=== PATIENT | female | born 1935 ===

== ENCOUNTER 2016-11-23 10:55 | Inpatient (IN) ==
[2016-11-23] MEDS ORDERED: Naloxone 0.4 MG/ML INJ IVP PRN (13:52)
[2016-11-23 14:34] LABS: Basophils % 0.4 %; Eosinophils % 0.4 %; Hematocrit 29.1 % (35.3-44.9); Hemoglobin 9.3 g/dL (11.5-15.4); Immature Granulocytes % 0.5 % (0-4); Lymphocytes # 0.5 K/mcL (0.6-4.6); Lymphocytes % 8.3 %; Mean Corpuscular Hemoglobin 28.4 pg (28.0-33.3); Mean Corpuscular Volume 88.7 fL (83.0-100.0); Mean Platelet Volume 9.6 fL (9.4-12.4); Monocytes # 0.4 K/mcL (0.0-1.3); Monocytes % 6.5 %; Neutrophils # 4.8 K/mcL (1.6-8.9); Platelet Count 246 K/mcL (140-400); Red Blood Count 3.28 M/mcL (3.82-4.97); Red Cell Distribution Width 15.3 % (11.5-14.5); Segmented Neutrophils % 83.9 %
[2016-11-23 14:40] LABS: INR 1.1; Prothrombin Time 12.1 Seconds (9.4-12.1)
--- NOTE | 2016-11-23 14:44 | Pulmonology History & Physical ---
Date of Encounter: 11/23/16 Time of Encounter: 13:30 Assessment and Plan (1) Respiratory failure Current visit: Yes Status: Acute Neuro: Patient arrived sedated. Underwent RSI [facility] ED. Per report patient received vecuronium was moving spontaneously on arrival. Patient showed some degree of JUSTINA transfer paperwork. Suspect the current altered mental status is due to retention of active metabolites of percent due to decreased creatinine clearance. Plan Will have patient wake up and then sedate provide analgesia as appropriate for mechanical ventilation. Cardiovascular: Extensive coronary disease history including CABG in 2010 and moderate aortic stenosis. Last echo edema records from March 2016 shows preserved LV function and only mild diastolic dysfunction. Patient's daughter' s description of symptoms could be indicative of acute worsening of CHF. This is also supported by clinical exam. Given that she is recently admitted and treated for nausea and vomiting, also that she received IV fluids prior to that treatment. Plan now is to obtain serum BNP, repeat transthoracic echo, and cardiac enzymes. Restart Lasix 40 mg IV. If hypertension persists consider initiation of nitroglycerin drip. Pulmonary: Acute respiratory failure at this point appears most likely related to exacerbation of CHF. Chest x-ray is pending. Patient is currently ventilating and oxygenating well without aggressive ventilatory management. Low suspicion for pneumonia or PE. Nephro: Evidence of JUSTINA on laboratory data forwarded from [facility]. No reported history of chronic kidney disease. Suspect this could be prerenal from decreased perfusion owing to congestive state. Plan to reevaluate serum creatinine following initiation of diuresis. Plan avoid other nephrotoxic drugs. GI: Nasogastric tube in place. Hold enteral nutrition for now with plan to initiate if patient remains intubated for more than 4872 hours. ID: Afebrile and other lab work pending. Plan to obtain blood cultures as the nature of her respiratory failure is not entirely clear. No plan to initiate antibiotics at this point most evidence of infection is uncovered. HO: Reported history of anemia of chronic disease. CBC pending. No apparent indication for transfusion. Endocrine: History of type 2 diabetes. Hold all oral antihyperglycemic's. Initiate sliding scale insulin. Musculoskeletal: No evidence of muscular skeletal injury. No skin break on exam. Disposition: Admitted to ICU Qualifiers: Chronicity: acute Respiratory failure complication: unspecified whether with hypoxia or hypercapnia Qualified Code(s): J96.00 - Acute respiratory failure, unspecified whether with hypoxia or hypercapnia (2) Angina at rest Current visit: No Status: Chronic (3) Atrial fibrillation Current visit: No Status: Chronic Qualifiers: Atrial fibrillation type: persistent Qualified Code(s): I48.1 - Persistent atrial fibrillation (4) Diabetes Current visit: Yes Status: Chronic Qualifiers: Diabetes mellitus type: type 2 Diabetes mellitus complication status: without complication Diabetes mellitus ocean transportation intermediary insulin use: without detention use Qualified Code(s): E11.9 - Type 2 diabetes mellitus without complications (5) Anemia Current visit: Yes Status: Chronic Qualifiers: Anemia type: iron deficiency Iron deficiency anemia type: unspecified iron deficiency Qualified Code(s): D50.9 - Iron deficiency anemia, unspecified History of Present Illness Chief complaint: Respiratory failure HPI: 81-year-old female was transferred from [place] ED for respiratory failure. Patient is intubated and sedated at time of interview in history of present illness was obtained through her daughter. Patient's daughter reports the patient was recently admitted to [facility] on November 20 for nausea, vomiting , and diarrhea. Patient was admitted for several days and discharged yesterday. Following discharge, patient began to experience increased shortness of breath and orthopnea. Patient was unable to sleep last night and her symptoms continued to worsen through the day today. The patient was transported to the emergency department by local EMS. On arrival patient was noted to be in respiratory failure and intubated by ED staff via RSI. According to patient's daughter, patient experiences baseline dyspnea at rest and dyspnea on exertion with chest pain and frequent sublingual nitroglycerin use. Patient has significant CAD history which includes 3 vessel bypass in 2010 and echo in March 2016 which reveals moderate aortic stenosis but preserved LV ejection fraction and mild diastolic dysfunction. Daughter reports the patient's baseline dyspnea had improved several months ago when patient was begun on daily Lasix therapy and notes that over the past several weeks to months her peripheral edema seems to have worsened again and her breathing has become more difficult. Aside from recent dyspnea, patient's daughter denies noting fevers, chills, productive cough, hemoptysis. Past Med Surg Social Fam HX - Past Medical History Source: old records reviewed, obtained from family Medical history: atrial fibrillation, coronary artery disease, diabetes, GERD, hyperlipidemia, hypertension, valvular heart disease Psychiatric history: no psych history - Past Surgical History Surgical History: cholecystectomy, coronary bypass (CABG), hysterectomy - Social History Smoking Status: Never smoker Smokeless Tobacco Status: No Alcohol use: none Drug use: none Medications and Allergies Amlodipine Besylate 10 mg PO DAILY 03/03/16 [History] Aspirin [Lo-Dose Aspirin EC] 81 mg PO DAILY 03/03/16 [History] Atorvastatin [Lipitor] 80 mg PO DAILY 03/03/16 [History] Clopidogrel [Plavix] 75 mg PO DAILY 03/03/16 [History] Isosorbide MONOnitrate [Isosorbide Mononitrate ER] 120 mg PO DAILY 03/03/16 [ History] Lisinopril [Zestril] 20 mg PO DAILY 03/03/16 [History] Metoprolol [Lopressor] 50 mg PO BID 03/03/16 [History] Multivit-Min/FA/Lycopen/Lutein [Centrum Silver Tablet] 1 tab PO DAILY 03/03/16 [ History] Nitroglycerin [Nitrostat] 0.4 mg PO Q5M PRN 03/03/16 [History] Pantoprazole Sodium [Protonix] 20 mg PO DAILY 03/03/16 [History] Ranolazine [Ranexa] 1,000 mg PO BID 03/03/16 [History] hydroCHLOROthiazide [Hydrochlorothiazide] 25 mg PO DAILY 03/03/16 [History] metFORMIN [Glucophage] 500 mg PO BIDWM 03/03/16 [History] Potassium Chloride 10 meq PO DAILY #30 tab.er.prt 03/04/16 [Rx] Furosemide 40 mg PO 11/23/16 [History] Allergies No Known Allergies Allergy (Verified 03/03/16 08:23) ROS unobtainable: due to endotracheal tube All Systems: A 10-system review of systems was performed and is negative for pertinent findings except as documented above in the HPI. Physical Examination Vital Signs: Vital Signs, Last 4 Hours Temp Pulse Resp BP Pulse Ox 11/23/16 14:11 16 100 11/23/16 14:02 88 16 173/82 98 11/23/16 13:39 97.6 F 96 15 159/81 99 11/23/16 13:31 90 General appearance: asleep Eyes: nonicteric Neck: supple Effort: other (Mechanically ventilated) Auscultation: bilateral: clear (anterior lung sounds) Cardiovascular: other (regular rhythm and tachycardic) Gastrointestinal: normoactive bowel sounds, soft Extremities: no cyanosis, no clubbing, pink and warm, edema (BL LE edema) Gait: other (could not be assessed) unable to assess due to mental status, other other (could not be assessed) Results - Laboratory Findings Abnormal lab findings: Abnormal lab results POC Glucose 110 (58-89) H 11/23/16 13:28 - Diagnostic Findings Chest x-ray: pending
[2016-11-23 14:49] LABS: ABG Base Excess -4.4 mEq/L (-2.0 to 3.0); ABG Oxygen Saturation 97 % (95-98); ABG PCO2 33 mmHg (35-45); ABG PH 7.39 pH Units (7.32-7.45); ABG PO2 94 mmHg (85-104); Blood Gas FiO2 40 %
[2016-11-23 14:55] LABS: Albumin 3.4 g/dL (3.5-5.0); Albumin/Globulin Ratio 0.9 (1.1-2.2); Bilirubin,Total 0.9 mg/dL (0.2-1.2); Calcium 9.9 mg/dL (8.6-10.8); Globulin 3.7 g/dL (2.4-3.5); Magnesium 1.5 mg/dL (1.6-2.6); Phosphorous 3.3 mg/dL (2.3-4.7); Potassium 3.9 mEq/L (3.5-4.5); Total Protein 7.1 g/dL (6.0-8.3)
[2016-11-23 15:03] LABS: Bilirubin,Urine Negative (Negative); Blood,Urine Negative (Negative); Clarity,Urine Clear (Clear); Color,Urine Yellow (Yellow); Glucose,Urine (UA) Normal (Normal); Ketones,Urine Negative (Negative); Leukocyte Esterase,Urine Negative (Negative); Nitrite,Urine Negative (Negative); Protein,Urine 30 mg/dL (Neg-Trace); Specific Gravity,Urine 1.014 (1.010-1.025); Urobilinogen,Urine Normal (Normal)
[2016-11-23 15:05] LABS: Bacteria,Urine None Seen per hpf (None-Few); Hyaline Casts,Urine None Seen per lpf (None-Few); Squamous Epithelial Cell,Urine Moderate per lpf (None-Few); WBC,Urine 0-3 per hpf (0-3)
[2016-11-23] MEDS ORDERED: *HR* Heparin 5,000 UNIT/ML VIAL IVP PRN ×5 (15:23→15:41)
[2016-11-23] MEDS ORDERED: *HR* Heparin 5,000 UNIT/ML VIAL IVP ONE ×3 (15:23→15:45)
[2016-11-23] MEDS ORDERED: Heparin 25,000 UNIT/500 ML D5W 25,000 UNIT/500 ML MLS IVC SCH (15:30)
[2016-11-23] MEDS ORDERED: *HR* Metoprolol 5 MG/5 ML VIAL IVP ONE ×2 (15:47→19:11)
[2016-11-23] MEDS: Aspirin 81 MG TAB.CHEW PO SCH (15:51)
[2016-11-23] MEDS: Furosemide 40 MG/4 ML VIAL IVP SCH (16:34)
[2016-11-23] MEDS: FentaNYL (PF) 1,000 MCG in 0.9 % Sodium Chloride 80 ML IVC SCH (16:50)
[2016-11-23] MEDS: Heparin 25,000 UNIT/500 ML D5W 25,000 UNIT/500 ML MLS IVC SCH (16:51)
[2016-11-23 17:10] LABS: Activated Partial Thrombo Time 36.3 Seconds (26.0-36.0)
[2016-11-23] MEDS: Metoclopramide 10 MG/10 ML UD.LIQ PO SCH (17:51)
[2016-11-23 23:25] LABS: Activated Partial Thrombo Time 158.2 Seconds (26.0-36.0)
[2016-11-23 23:34] LABS: Heparin anti-factor XA UFH 0.8 IU/mL (0.30-0.70)
[2016-11-24] MEDS: Furosemide 40 MG/4 ML VIAL IVP SCH (03:38)
[2016-11-24] MEDS ORDERED: Nitroglycerin 0.4 MG TAB.SUBL SL PRN (03:44)
[2016-11-24] MEDS: Metoclopramide 10 MG/10 ML UD.LIQ PO SCH ×2 (05:01→17:37)
[2016-11-24] MEDS ORDERED: Ondansetron 4 MG/2 ML VIAL IVP PRN (07:21)
[2016-11-24 07:40] LABS: Calcium 9.2 mg/dL (8.6-10.8); Magnesium 1.4 mg/dL (1.6-2.6)
[2016-11-24 07:41] LABS: Phosphorous 5.3 mg/dL (2.3-4.7)
[2016-11-24 07:50] LABS: Hematocrit 26.6 % (35.3-44.9); Hemoglobin 8.5 g/dL (11.5-15.4); Mean Corpuscular Hemoglobin 28.9 pg (28.0-33.3); Mean Corpuscular Volume 90.5 fL (83.0-100.0); Mean Platelet Volume 10.4 fL (9.4-12.4); Platelet Count 285 K/mcL (140-400); Red Blood Count 2.94 M/mcL (3.82-4.97); Red Cell Distribution Width 15.9 % (11.5-14.5)
[2016-11-24] MEDS ORDERED: D5% in Water 1,000 ML IVC PRN ×2 (07:53→10:40)
[2016-11-24] MEDS ORDERED: Dextrose Gel 15 GM PO PRN ×4 (07:53→10:40)
[2016-11-24] MEDS ORDERED: *HR* Dextrose 50 % in Water (Syg) 50 ML SYRINGE IVP PRN ×2 (07:53→10:40)
[2016-11-24] MEDS: Pantoprazole 40 MG VIAL IVPB SCH (08:44)
[2016-11-24] MEDS: Aspirin 81 MG TAB.CHEW PO SCH (08:44)
[2016-11-24] MEDS: FentaNYL (PF) 1,000 MCG in 0.9 % Sodium Chloride 80 ML IVC SCH ×2 (09:13→19:51)
--- NOTE | 2016-11-24 11:45 | Pulmonology Progress Note ---
Date of Encounter: 11/24/16 Time of Encounter: 08:30 Assessment and Plan (1) Respiratory failure Current Visit: Yes Status: Acute Neuro: Anxiety reported during his PT this morning. Improved with adjustment to sedation. Cardiovascular: History of significant coronary disease and status post 3V CABG in 2010. Also significant valvular disease with last echo in March 2016 showing moderate severe aortic stenosis. Initial assessment was the patient appeared to be in congestive heart failure. Attempt was made for management with diuresis. Patient has had limited response to fairly large doses of Lasix but has shown continued elevation creatinine. Discontinue Lasix today. Patient also showing evidence of an STEMI with troponin 8. Reported as 0.11 at [facility] increased to 0.18 and then 0.19 on follow-up exams here. Rate control has now been attained with combination IV and enteral metoprolol. Patient continued on aspirin and Plavix. Currently on heparin drip. Continue to trend troponins. The patient continues plan for cardiology consult. Pulmonary: Acute respiratory failure still appears most likely related to CHF. Patient is easily ventilator and oxygen on mechanical ventilation. SBT and this morning due to anxiety. Now that rate control has been accomplished the patient's anxiety is managed plan for repeat SBT. Nephro: Presented yesterday with acute kidney injury. History and interval increase in serum creatinine from 1.5-1.6. Has had minimal response to IV diuresis. Now developing metabolic acidosis with serum bicarbonate of 17 and calculated anion gap of 14. Discontinue Lasix, obtain urine electrolytes, obtain urine ultrasound, recheck lactate, and obtain serum ketones. If evidence of kidney injury continues, plan for nephrology consult. GI: NG tube in place will not attempt enteral nutrition at this point. ID: No evidence of infection HO: Chronic stable anemia. Prior history attributed to chronic disease. No interventions today Endocrine: History of DMII with some hyperglycemia since admission. Sliding scale orders started. Musculoskeletal: No acute issues. Disposition: Remain in ICU. Critical care time 60 minutes Qualifiers: Chronicity: acute Respiratory failure complication: unspecified whether with hypoxia or hypercapnia Qualified Code(s): J96.00 - Acute respiratory failure, unspecified whether with hypoxia or hypercapnia (2) Angina at rest Current Visit: No Status: Chronic (3) Atrial fibrillation Current Visit: Yes Status: Chronic Qualifiers: Atrial fibrillation type: persistent Qualified Code(s): I48.1 - Persistent atrial fibrillation (4) Diabetes Current Visit: Yes Status: Acute Qualifiers: Diabetes mellitus type: type 2 Diabetes mellitus complication status: without complication Diabetes mellitus fpc insulin use: without rn long term care use Qualified Code(s): E11.9 - Type 2 diabetes mellitus without complications (5) Anemia Current Visit: Yes Status: Chronic Qualifiers: Anemia type: iron deficiency Iron deficiency anemia type: unspecified iron deficiency Qualified Code(s): D50.9 - Iron deficiency anemia, unspecified Subjective Principal diagnosis: Heart failure Interval history: 81-year-old female admitted on November 23 from [facility] ED for respiratory failure requiring intubation and mechanical ventilation. After arrival at this facility yesterday assessment was the most likely etiology is congestive heart failure. Mechanical ventilation was continued and patient was placed on twice a day IV Lasix. Overnight, patient continued to have issues with rate control for her A. fib. Received several doses of metoprolol and a single dose of diltiazem without control being obtained. During SBT this morning, patient became anxious and tachypneic. SBT was discontinued. An additional dose of metoprolol was given and rate control was accomplished. Patient then became less anxious. Patient is interactive on the ventilator and denies any new complaints this morning. Objective PUL Vital signs: Last Vital Signs Temp 98.1 F 11/24/16 07:50 Pulse 78 11/24/16 10:00 Resp 12 11/24/16 10:00 BP 147/69 11/24/16 10:00 Pulse Ox 99 11/24/16 10:00 General appearance: no acute distress Eyes: nonicteric Neck: supple Effort: normal, other (On mechanical ventilation) Auscultation: bilateral: clear Cardiovascular: irregular rhythm Gastrointestinal: hypoactive bowel sounds, soft, non-tender Extremities: no cyanosis, no edema, edema Musculoskeletal: no deformities other (Alvarez interactive on ventilator) mood appropriate Ventilator Settings Ventilator Settings: Ventilator Settings, Last 8 Hours Ventilator Mode VC+ Ventilator Mode VC+ Ventilator Mode VC+ Ventilator Mode VC+ Ventilator Mode CPAP Ventilator Mode A/C Ventilator Mode A/C Ventilator Mode A/C Ventilator Tidal Volume 500 Setting Ventilator Tidal Volume 500 Setting Ventilator Tidal Volume 500 Setting Ventilator Tidal Volume 500 Setting Ventilator Tidal Volume 500 Setting Ventilator Tidal Volume 500 Setting Ventilator Tidal Volume 500 Setting Ventilator Respiratory Rate 12 Setting Ventilator Respiratory Rate 12 Setting Ventilator Respiratory Rate 12 Setting Ventilator Respiratory Rate 12 Setting Ventilator Respiratory Rate 12 Setting Ventilator Respiratory Rate 12 Setting Ventilator Respiratory Rate 12 Setting Actual Respiratory Rate 14 Actual Respiratory Rate 14 Actual Respiratory Rate 17 Actual Respiratory Rate 12 Actual Respiratory Rate 16 Actual Respiratory Rate 14 Actual Respiratory Rate 18 Positive End Expiratory 5 Pressure Positive End Expiratory 5 Pressure Positive End Expiratory 5 Pressure Positive End Expiratory 5 Pressure Positive End Expiratory 25 Pressure Positive End Expiratory 5 Pressure Positive End Expiratory 5 Pressure Positive End Expiratory 5 Pressure Peak Inspiratory Airway 27 Pressure Peak Inspiratory Airway 27 Pressure Peak Inspiratory Airway 29 Pressure Peak Inspiratory Airway 26 Pressure Peak Inspiratory Airway 15 Pressure Peak Inspiratory Airway 32 Pressure Peak Inspiratory Airway 28 Pressure Peak Inspiratory Airway 27 Pressure Results - Laboratory Findings CBC and BMP: 11/24/16 07:23 11/24/16 07:23 ABG ABG pH 7.39 pH Units (7.32-7.45) 11/23/16 14:35 ABG pCO2 33 mmHg (35-45) L 11/23/16 14:35 ABG pO2 94 mmHg (85-104) 11/23/16 14:35 ABG O2 Saturation 97 % (95-98) 11/23/16 14:35 PT/INR, D-dimer PT 12.1 Seconds (9.4-12.1) 11/23/16 14:25 Abnormal lab findings: Abnormal lab results RBC 2.94 M/mcL (3.82-4.97) L 11/24/16 07:23 Hgb 8.5 g/dL (11.5-15.4) L 11/24/16 07:23 Hct 26.6 % (35.3-44.9) L 11/24/16 07:23 RDW 15.9 % (11.5-14.5) H 11/24/16 07:23 Lymphocytes # 0.5 K/mcL (0.6-4.6) L 11/23/16 14:25 APTT 78.8 Seconds (26.0-36.0) H D 11/24/16 07:17 Heparin Anti-Xa, Unfract 0.80 IU/mL (0.30-0.70) H 11/23/16 22:31 ABG pCO2 33 mmHg (35-45) L 11/23/16 14:35 ABG HCO3 20.0 mEQ/L (21-27) L 11/23/16 14:35 ABG Base Excess -4.4 mEq/L (-2.0 to 3.0) L 11/23/16 14:35 Carbon Dioxide 17 mEq/L (19-29) L 11/24/16 07:23 BUN 33 mg/dL (7-20) H 11/24/16 07:23 Creatinine 1.61 mg/dL (0.57-1.11) H 11/24/16 07:23 Est GFR ( Amer) 37 (> 60) L 11/24/16 07:23 Est GFR (Non-Af Amer) 31 (> 60) L 11/24/16 07:23 Glucose 169 mg/dL (70-99) H 11/24/16 07:23 POC Glucose 174 (58-89) H 11/24/16 07:31 Phosphorus 5.3 mg/dL (2.3-4.7) H D 11/24/16 07:23 Magnesium 1.4 mg/dL (1.6-2.6) L 11/24/16 07:23 AST 50 Units/L (5-34) H 11/23/16 14:25 Troponin I 0.19 ng/mL (0-0.03) H* 11/24/16 07:23 Albumin 3.4 g/dL (3.5-5.0) L 11/23/16 14:25 Globulin 3.7 g/dL (2.4-3.5) H 11/23/16 14:25 Albumin/Globulin Ratio 0.9 (1.1-2.2) L 11/23/16 14:25 Urine Protein 30 mg/dL (Neg-Trace) H 11/23/16 14:53 Urine Microscopic RBC 3-5 per hpf (0-3) H 11/23/16 14:53 Ur Squamous Epith Cells Moderate per lpf (None-Few) H 11/23/16 14:53 - Clinical Findings Intake & Output: Intake & Output 11/23/16 11/24/16 11/24/16 23:59 07:59 15:59 Intake Total 133 / 133 0 / 0 100 / 100 Output Total 700 / 700 600 / 600 Balance -567 / -567 -600 / -600 100 / 100 Consult Discharge Plan - Plan Referrals: Bradley Bass DO [Primary Care Provider] -
[2016-11-24] MEDS: Insulin LISPRO 300 UNITS/3 ML VIAL SQ SCH ×2 (12:34→17:46)
[2016-11-24 12:47] LABS: Potassium,Urine 43.8 mEq/L
[2016-11-24 13:19] LABS: Calcium 9.2 mg/dL (8.6-10.8); Potassium 3.8 mEq/L (3.5-4.5)
--- NOTE | 2016-11-24 14:37 | Electrocardiograph Report ---
[place] [address] Test Date: 2016-11-23 Pat Name: Yumi Schofield Department: 109 Room: [facility] Gender: F Non Destructive Testing Inspector: : 1935 Requested By: Markie Crawford Order Number: [id number] Reading MD: Yasmeen Mcbride Measurements Intervals [place] Rate: 84 P: ND: 0 QRS: -12 QRSD: 146 T: 105 QT: 423 QTc: 465 Interpretive Statements NORMAL SINUS RHYTHM LEFT BUNDLE BRANCH BLOCK NONSPECIFIC ST-T ABNORMALITIES Electronically Signed On 11-24-2016 14:36:02 EDT by Yasmeen Mcbride
--- NOTE | 2016-11-24 14:50 | Electrocardiograph Report ---
[address] [place], [place] [address] Test Date: 2016-11-24 Pat Name: Yumi Schofield Department: 109 Room: [facility] Gender: F Web Design Specialist: : [id number] Requested By: Markie Crawford Order Number: [id number] Reading MD: Yasmeen Mcbride Measurements Intervals [place] Rate: 131 P: TN: 0 QRS: 12 QRSD: 146 T: 174 QT: 307 QTc: 384 Interpretive Statements ATRIAL FIBRILLATION WITH RAPID VENTRICULAR RESPONSE LEFT BUNDLE BRANCH BLOCK Electronically Signed On 11-24-2016 14:48:49 EDT by Yasmeen Mcbride
[2016-11-24 16:14] LABS: ABG Base Excess -2.3 mEq/L (-2.0 to 3.0); ABG HCO3 22.4 mEQ/L (21-27); ABG Oxygen Saturation 95 % (95-98); ABG PCO2 37 mmHg (35-45); ABG PH 7.39 pH Units (7.32-7.45); ABG PO2 75 mmHg (85-104); ABG TCO2 23.5 mEq/L (20-26)
[2016-11-24 16:18] LABS: Blood Gas FiO2 40 %
[2016-11-24] MEDS: Dexmedetomidine HCl 400 MCG/100 ML MLS IVC SCH ×2 (19:50→19:56)
[2016-11-24] MEDS: Heparin 25,000 UNIT/500 ML D5W 25,000 UNIT/500 ML MLS IVC SCH (19:52)
[2016-11-25] MEDS: Insulin LISPRO 300 UNITS/3 ML VIAL SQ SCH ×3 (00:14→12:35)
[2016-11-25] MEDS: Metoclopramide 10 MG/10 ML UD.LIQ PO SCH (04:09)
[2016-11-25] MEDS: FentaNYL (PF) 1,000 MCG in 0.9 % Sodium Chloride 80 ML IVC SCH (05:43)
[2016-11-25 07:22] LABS: Albumin/Globulin Ratio 0.8 (1.1-2.2); Bilirubin,Total 0.6 mg/dL (0.2-1.2); Calcium 8.7 mg/dL (8.6-10.8); Globulin 3.2 g/dL (2.4-3.5); Potassium 3.4 mEq/L (3.5-4.5)
[2016-11-25 07:23] LABS: Albumin 2.4 g/dL (3.5-5.0); Total Protein 5.6 g/dL (6.0-8.3)
--- NOTE | 2016-11-25 07:27 | Pulmonology Progress Note ---
Date of Encounter: 11/25/16 Time of Encounter: 07:25 Assessment and Plan (1) Respiratory failure Current Visit: Yes Status: Acute Neuro/psych: Awake and alert. Follows commands. Medication for anxiety. Pulm: Acute respiratory failure most likely related to CHF. Patient is easily oxygenated and ventilated on mechanical ventilation. Plan for spontaneous breathing trial today. Cardio: History of significant CAD s/p CABG x3 2010. Continue aspirin, statin, Plavix. A. fib, rate control with metoprolol. On admission, appeared to be in CHF exacerbation. NSTEMI - heparin drip initiated 11/23; continue to trend troponin. Cardiology consulted, appreciate recommendations. Echo: EF 45-50%, mild global reduction in LV systolic function. Moderate LV diastolic dysfunction with elevated filling pressures. Mild LV hypertrophy. Moderately calcified aortic valve leaflets with severe reduction in leaflet motion and severe aortic stenosis, Moderately calcified mitral leaflets with reduction in leaflet excursion and mild to moderate mitral stenosis. Mild pulmonic regurgitation. Moderate severe eccentric tricuspid regurgitation. Severe pulmonary hypertension. Since last study March 2016, LV systolic function is now mildly reduced and there is severe pulmonary hypertension. FEN-GI: GI prophylaxis on board, currently tube feed diet via NG. If extubated , initiate PO feeds. Electrolyte protocol. Hypokalemia and hypomagnesemia today. Renal: Acute on chronic kidney injury, sCr improved today. Lasix 40 mg IV 1. ID: No evidence of infection. Heme/Onc: Anemia, slowly trending down; h/o anemia of chronic disease - continue to monitor. Currently on heparin drip. No additional DVT prophylaxis necessary. Endocrine: DM II, SSI. Integ/MSK: ICU skin care protocol Qualifiers: Chronicity: acute Respiratory failure complication: unspecified whether with hypoxia or hypercapnia Qualified Code(s): J96.00 - Acute respiratory failure, unspecified whether with hypoxia or hypercapnia (2) [id number] kidney injury Current Visit: Yes Status: Acute presumed CKD stage 3A (GFR March) (3) NSTEMI (non-ST elevated myocardial infarction) Current Visit: Yes Status: Acute (4) Hypokalemia Current Visit: Yes Status: Acute (5) Hypomagnesemia Current Visit: Yes Status: Acute (6) Atrial fibrillation Current Visit: Yes Status: Chronic Qualifiers: Atrial fibrillation type: persistent Qualified Code(s): I48.1 - Persistent atrial fibrillation (7) Anemia Current Visit: Yes Status: Chronic Qualifiers: Anemia type: iron deficiency Iron deficiency anemia type: unspecified iron deficiency Qualified Code(s): D50.9 - Iron deficiency anemia, unspecified (8) Diabetes Current Visit: Yes Status: Chronic Qualifiers: Diabetes mellitus type: type 2 Diabetes mellitus complication status: without complication Diabetes mellitus middle or intermediate school principal insulin use: without middle or intermediate school principal use Qualified Code(s): E11.9 - Type 2 diabetes mellitus without complications (9) Angina at rest Current Visit: No Status: Chronic (10) CAD (coronary artery disease) Current Visit: No Status: Chronic Qualifiers: Coronary Disease-Associated Artery/Lesion type: [place] artery [place] vs. transplanted heart: [place] heart Associated angina: with unstable angina Qualified Code(s): I25.110 - Atherosclerotic heart disease of [place] coronary artery with unstable angina pectoris (11) Hypertension Current Visit: No Status: Chronic Qualifiers: Hypertension type: essential hypertension Qualified Code(s): I10 - Essential (primary) hypertension (12) CHF (congestive heart failure) Current Visit: Yes Status: Acute Echo: EF 45-50%, mild global reduction in LV systolic function. Moderate LV diastolic dysfunction with elevated filling pressures. Mild LV hypertrophy. Moderately calcified aortic valve leaflets with severe reduction in leaflet motion and severe aortic stenosis, Moderately calcified mitral leaflets with reduction in leaflet excursion and mild to moderate mitral stenosis. Mild pulmonic regurgitation. Moderate severe eccentric tricuspid regurgitation. Severe pulmonary hypertension. Since last study March 2016, LV systolic function is now mildly reduced and there is severe pulmonary hypertension. Qualifiers: Congestive heart failure type: combined Congestive heart failure chronicity : acute on chronic Qualified Code(s): I50.43 - Acute on chronic combined systolic (congestive) and diastolic (congestive) heart failure (13) Severe aortic stenosis Current Visit: Yes Status: Chronic (14) Moderate to severe pulmonary hypertension Current Visit: Yes Status: Acute Subjective Principal diagnosis: Heart failure Interval history: No acute events overnight. Patient with increase in heart rate this morning ( A. fib RVR) - up to 125. Awake and alert, follows commands. On mechanical ventilation. Objective PUL Vital signs: Last Vital Signs Temp 99.1 F 11/25/16 04:00 Pulse 123 11/25/16 07:10 Resp 16 11/25/16 07:10 BP 115/87 11/25/16 07:10 Pulse Ox 96 11/25/16 07:10 General appearance: no acute distress Eyes: nonicteric ENT: oropharynx moist Effort: normal, other (Mechanical ventilation) Auscultation: bilateral: clear Cardiovascular: irregular rhythm Gastrointestinal: normoactive bowel sounds, soft, non-tender Integumentary: normal Extremities: no cyanosis, no edema, pink and warm, pulses normal Ventilator Settings Ventilator Settings: Ventilator Settings, Last 8 Hours Ventilator Mode VC+ Ventilator Mode VC+ Ventilator Mode VC+ Ventilator Mode VC+ Ventilator Mode VC+ Ventilator Mode VC+ Ventilator Mode VC+ Ventilator Mode VC+ Ventilator Mode VC+ Ventilator Mode VC+ Ventilator Tidal Volume 500 Setting Ventilator Tidal Volume 500 Setting Ventilator Tidal Volume 500 Setting Ventilator Tidal Volume 500 Setting Ventilator Tidal Volume 500 Setting Ventilator Tidal Volume 500 Setting Ventilator Tidal Volume 500 Setting Ventilator Tidal Volume 500 Setting Ventilator Tidal Volume 500 Setting Ventilator Tidal Volume 500 Setting Ventilator Respiratory Rate 12 Setting Ventilator Respiratory Rate 12 Setting Ventilator Respiratory Rate 12 Setting Ventilator Respiratory Rate 12 Setting Ventilator Respiratory Rate 12 Setting Ventilator Respiratory Rate 12 Setting Ventilator Respiratory Rate 12 Setting Ventilator Respiratory Rate 12 Setting Ventilator Respiratory Rate 12 Setting Ventilator Respiratory Rate 12 Setting Actual Respiratory Rate 13 Actual Respiratory Rate 14 Actual Respiratory Rate 13 Actual Respiratory Rate 14 Actual Respiratory Rate 13 Actual Respiratory Rate 18 Actual Respiratory Rate 14 Actual Respiratory Rate 14 Actual Respiratory Rate 13 Actual Respiratory Rate 22 Positive End Expiratory 5 Pressure Positive End Expiratory 5 Pressure Positive End Expiratory 5 Pressure Positive End Expiratory 5 Pressure Positive End Expiratory 5 Pressure Positive End Expiratory 5 Pressure Positive End Expiratory 5 Pressure Positive End Expiratory 5 Pressure Positive End Expiratory 5 Pressure Positive End Expiratory 5 Pressure Peak Inspiratory Airway 29 Pressure Peak Inspiratory Airway 30 Pressure Peak Inspiratory Airway 29 Pressure Peak Inspiratory Airway 30 Pressure Peak Inspiratory Airway 25 Pressure Peak Inspiratory Airway 28 Pressure Peak Inspiratory Airway 30 Pressure Peak Inspiratory Airway 29 Pressure Peak Inspiratory Airway 29 Pressure Peak Inspiratory Airway 29 Pressure Results - Laboratory Findings CBC and BMP: 11/25/16 03:07 11/25/16 03:07 ABG ABG pH 7.39 pH Units (7.32-7.45) 11/24/16 16:00 ABG pCO2 37 mmHg (35-45) 11/24/16 16:00 ABG pO2 75 mmHg (85-104) L 11/24/16 16:00 ABG O2 Saturation 95 % (95-98) 11/24/16 16:00 PT/INR, D-dimer PT 12.1 Seconds (9.4-12.1) 11/23/16 14:25 Abnormal lab findings: Abnormal lab results RBC 2.94 M/mcL (3.82-4.97) L 11/24/16 07:23 Hgb 8.5 g/dL (11.5-15.4) L 11/24/16 07:23 Hct 26.6 % (35.3-44.9) L 11/24/16 07:23 RDW 15.9 % (11.5-14.5) H 11/24/16 07:23 Lymphocytes # 0.5 K/mcL (0.6-4.6) L 11/23/16 14:25 APTT 61.4 Seconds (26.0-36.0) H 11/25/16 03:07 Heparin Anti-Xa, Unfract 0.80 IU/mL (0.30-0.70) H 11/23/16 22:31 ABG pO2 75 mmHg (85-104) L 11/24/16 16:00 ABG Base Excess -2.3 mEq/L (-2.0 to 3.0) L 11/24/16 16:00 Potassium 3.4 mEq/L (3.5-4.5) L 11/25/16 03:07 BUN 31 mg/dL (7-20) H 11/25/16 03:07 Creatinine 1.33 mg/dL (0.57-1.11) H 11/25/16 03:07 Est GFR ( Amer) 47 (> 60) L 11/25/16 03:07 Est GFR (Non-Af Amer) 38 (> 60) L 11/25/16 03:07 Glucose 129 mg/dL (70-99) H 11/25/16 03:07 POC Glucose 157 (58-89) H 11/24/16 23:57 Phosphorus 5.3 mg/dL (2.3-4.7) H D 11/24/16 07:23 Magnesium 1.4 mg/dL (1.6-2.6) L 11/24/16 07:23 Troponin I 0.21 ng/mL (0-0.03) H* 11/24/16 12:19 Serum Total Protein 5.6 g/dL (6.0-8.3) L D 11/25/16 03:07 Albumin 2.4 g/dL (3.5-5.0) L D 11/25/16 03:07 Albumin/Globulin Ratio 0.8 (1.1-2.2) L 11/25/16 03:07 Beta-Hydroxybutyric Acd 0.66 mmol/L (0.02-0.27) H 11/24/16 12:19 Urine Protein 30 mg/dL (Neg-Trace) H 11/23/16 14:53 Urine Microscopic RBC 3-5 per hpf (0-3) H 11/23/16 14:53 Ur Squamous Epith Cells Moderate per lpf (None-Few) H 11/23/16 14:53 - Microbiology Findings Microbiology Findings: Microbiology, Last 48 Hours 11/24/16 20:50 Sputum Culture - Preliminary Sputum - Clinical Findings Intake & Output: Intake & Output 11/24/16 11/24/16 11/25/16 15:59 23:59 07:59 Intake Total 100 / 100 508 / 508 512 / 512 Output Total 350 / 350 400 / 400 325 / 325 Balance -250 / -250 108 / 108 187 / 187 Weight 73.7 kg Consult Discharge Plan - Plan Referrals: Bradley Bass DO [Primary Care Provider] -
[2016-11-25 08:18] LABS: Basophils % 0.5 %; Eosinophils # 0.2 K/mcL (0.0-0.6); Eosinophils % 2.8 %; Hemoglobin 7.8 g/dL (11.5-15.4); Immature Granulocytes % 0.5 % (0-4); Lymphocytes # 1.2 K/mcL (0.6-4.6); Lymphocytes % 19.8 %; Mean Corpuscular HGB Conc 31.2 g/dL (31.6-35.5); Mean Corpuscular Hemoglobin 29.1 pg (28.0-33.3); Mean Corpuscular Volume 93.3 fL (83.0-100.0); Mean Platelet Volume 10.7 fL (9.4-12.4); Monocytes # 0.6 K/mcL (0.0-1.3); Monocytes % 9.2 %; Neutrophils # 4.1 K/mcL (1.6-8.9); Nucleated Red Blood Cells 0.3 /100 WBC (0); Platelet Count 224 K/mcL (140-400); Red Blood Count 2.68 M/mcL (3.82-4.97); Red Cell Distribution Width 16.1 % (11.5-14.5); Segmented Neutrophils % 67.2 %
[2016-11-25] MEDS: Pantoprazole 40 MG VIAL IVPB SCH (08:45)
[2016-11-25] MEDS: Aspirin 81 MG TAB.CHEW PO SCH (08:45)
[2016-11-25 10:10] LABS: Magnesium 1.3 mg/dL (1.6-2.6); Phosphorous 3.8 mg/dL (2.3-4.7)
[2016-11-25] MEDS ORDERED: Lacri-Lube 3.5 GM TUBE BOTH EYES PRN (10:18)
[2016-11-25] MEDS ORDERED: Furosemide 40 MG/4 ML VIAL IVP ONE (10:23)
[2016-11-25] MEDS ORDERED: Magnesium Sulfate 2 GM in D5% in Water 100 ML IVPB PRN (10:28)
[2016-11-25] MEDS ORDERED: Potassium Phosphate 44 MEQ in 0.9 % Sodium Chloride 250 ML IVPB PRN (10:28)
--- NOTE | 2016-11-25 11:30 | Cardiology Consult Note ---
Date of Encounter: 11/25/16 Time of Encounter: 11:20 Assessment and Plan (1) Respiratory failure Current Visit: Yes Status: Acute Per Cardiology: Acute on chronic resp failure. Suspect multifactorial-- severe PHTN, Severe , possible NSTEMI?, volume overload. CXR showed pulmonary edema with small bilateral pleural effusions. Remains intubated. Management per Pulm. Family evaluating possible terminal extubation and proceeding with DNI. Net Negative I& O -863ml. Received IV Lasix 40mg x 1 late this am. Will monitor. Qualifiers: Chronicity: acute on chronic Respiratory failure complication: unspecified whether with hypoxia or hypercapnia Qualified Code(s): J96.20 - Acute and chronic respiratory failure, unspecified whether with hypoxia or hypercapnia (2) Severe aortic stenosis Current Visit: Yes Status: Chronic Per Cardiology: Current echo shows EF 45-50%-- decreased from previous EF 55-60% March 2016. Shows moderate diastolic dysfunction, normal RV size and function, severe reduction in leaflet motion with palpable low gradient severe aortic stenosis with mean gradient 28mmHg. also with mild to moderate MS, mild pulmonic regurgitation, moderate severe tricuspid regurgitation, severe pulmonary hypertension. Per discussion with family, they do not desire to proceed with any further invasive evaluation in terms of catheterization or evaluation in terms of possible transcatheter valve procedure. They prefer conservative medical management. (3) Elevated troponin I measurement Current Visit: Yes Status: Acute Per Cardiology: Present with mild troponin elevations with respiratory failure and intubation. Current troponin elevated at 1.47. Family does not desire LHC at this time. On asa, plAVIX, STATIN, bb. (4) CAD (coronary artery disease) Current Visit: No Status: Chronic Per Cardiology: Known history of CAD with CABG 3 in 2004. Last heart catheterization in 2010 showed left main 20%, mid LAD 50%, diagonal one 70%, circumflex 30%, circumflex mid 30% and patient underwent OM1 70% drug-eluting stent placement. Had patent proximal RCA stent. SVG to RCA was occluded, SVG to diagonal 1 patent, and PRADO to mid LAD patent. -ST 2013. Qualifiers: Coronary Disease-Associated Artery/Lesion type: [place] artery [place] vs. transplanted heart: [place] heart Associated angina: with unstable angina Qualified Code(s): I25.110 - Atherosclerotic heart disease of [place] coronary artery with unstable angina pectoris (5) Atrial fibrillation Current Visit: Yes Status: Chronic Per Cardiology: Appears to have new onset A. fib with RVR in March 03. Not anticoagulated due to anemia requiring blood transfusions. Currently during hospital stay has been in sinus rhythm, atrial flutter, and atrial fibrillation. Currently A. fib with RVR in the 120s to 140s. Discussed and reviewed with Dr. Batista, we'll proceed with amio load and gtt. for rate control. Qualifiers: Atrial fibrillation type: persistent Qualified Code(s): I48.1 - Persistent atrial fibrillation (6) Anemia Current Visit: Yes Status: Chronic Per Cardiology: Again not previously anticoagulated. Discussed and reviewed with Dr. Batista, continue with aspirin and Plavix for now. Discontinue heparin drip. Has SCDs for DVT prophylaxis. Qualifiers: Anemia type: iron deficiency Iron deficiency anemia type: unspecified iron deficiency Qualified Code(s): D50.9 - Iron deficiency anemia, unspecified (7) [id number] kidney injury Current Visit: Yes Status: Acute Per Cardiology: Appears improved. Discussion w patient/family: The assessment and plan as outlined above was discussed with the patient and/or family members who expressed understanding and agreement. All questions were answered. Thank you for involving us in the care of your patient. Please call with any questions. History of Present Illness Consult date: 11/25/16 Requesting physician: Milagro Mcghee Consult reason: Elevated Trop, Chief complaint: CP, SOB History of present illness: Ms. Schofield is a 81 year old female with a relevant past medical history of CAD with CABG, diabetes mellitus type 2, hyperlipidemia, aortic stenosis, hypertension, and atrial fibrillation not on anticoagulation due to history of GI bleed. Last seen by Dr. Bustillo 07/2016. Had hospital stay 03/2016 for afib rvr-- not anticoagulated d/t anemia requiring blood transfusions. Cardiology consult for elevated troponins, decreased EF, and aortic stenosis. Of note patient is DNR Comfort Care arrest and currently intubated. Patient currently intubated and sedated with fentanyl. Opens eyes to verbal stimuli. Family at bedside-- hx obtained from family. They report since last cardiology office visit, gradual overall decline in breathing and frequency of CP. Reports increased SOB at rest and CP at rest the past few days. Was utilizing SL NTG pills with no relief. Presented via EMS to outside facility reportedly unresponsive and subsequently intubated and transferred to [facility]. Past Med Surg Social Fam HX - Past Medical History Source: old records reviewed, obtained from family Medical history: atrial fibrillation, coronary artery disease, diabetes, GERD, hyperlipidemia, hypertension, valvular heart disease Psychiatric history: no psych history - Past Surgical History Surgical History: cholecystectomy, coronary bypass (CABG), hysterectomy - Social History Smoking Status: Never smoker Smokeless Tobacco Status: No Alcohol use: none Drug use: none Medications and Allergies Amlodipine Besylate 10 mg PO DAILY 03/03/16 [History] Aspirin [Lo-Dose Aspirin EC] 81 mg PO DAILY 03/03/16 [History] Atorvastatin [Lipitor] 80 mg PO DAILY 03/03/16 [History] Clopidogrel [Plavix] 75 mg PO DAILY 03/03/16 [History] Isosorbide MONOnitrate [Isosorbide Mononitrate ER] 120 mg PO DAILY 03/03/16 [ History] Lisinopril [Zestril] 20 mg PO DAILY 03/03/16 [History] Metoprolol [Lopressor] 50 mg PO BID 03/03/16 [History] Multivit-Min/FA/Lycopen/Lutein [Centrum Silver Tablet] 1 tab PO DAILY 03/03/16 [ History] Nitroglycerin [Nitrostat] 0.4 mg PO Q5M PRN 03/03/16 [History] Pantoprazole Sodium [Protonix] 20 mg PO DAILY 03/03/16 [History] Ranolazine [Ranexa] 1,000 mg PO BID 03/03/16 [History] hydroCHLOROthiazide [Hydrochlorothiazide] 25 mg PO DAILY 03/03/16 [History] metFORMIN [Glucophage] 500 mg PO BIDWM 03/03/16 [History] Potassium Chloride 10 meq PO DAILY #30 tab.er.prt 03/04/16 [Rx] Ca/D3/Mag#11/Zinc/Slubber Tender/Eric/Bor [Caltrate 600+D Plus Tablet] 1 tab PO DAILY 11/23 [History] Fenofibrate Nanocrystallized [Triglide] 160 mg PO DAILY 11/23/16 [History] Furosemide [Lasix] 40 mg PO DAILY 11/23/16 [History] Allergies No Known Allergies Allergy (Verified 03/03/16 08:23) All Systems Review: A 10-system review of systems was performed and is negative for pertinent findings except as documented above in the HPI. - Cardiovascular Cardiovascular: as per HPI Physical Examination Vital Signs, Last 4 Hours Temp Pulse Resp BP Pulse Ox 11/25/16 10:00 109 13 102/73 96 11/25/16 09:45 13 124/114 97 11/25/16 09:00 127 13 111/98 98 11/25/16 08:00 123 13 103/79 98 11/25/16 07:40 21 127/73 97 11/25/16 07:26 98.8 F HEENT: Atraumatic, Normocephaly, Mucus Membranes Moist Neck: No JVD, Normal carotid pulses Cardiac: Other (irregularly irregular, grade III/ murmur noted.) Lungs: Other (decreased anteriorly, on vent ) Neuro: Other (sedated on Fentanyl gtt, open eyes to verbal commands, +MCCRAY x 4 noted) Abdomen: Soft, Non-Tender Skin: No rashes noted on visualized skin Musculoskeletal: No Chest Wall Tenderness Extremities: Normal Pulses, Other (+1 nonpitting edema bilateral LE) Results 11/25/16 03:07 11/25/16 03:07 Lab Results Laboratory Tests 10/06/14 03/04/16 03/04/16 12:24 03:28 03:28 Hgb 9.2 L Hct 28.0 L INR Creatinine 2.06 H 1.04 Troponin I Albumin 11/23/16 11/23/16 11/23/16 14:25 14:25 14:25 Hgb 9.3 L Hct 29.1 L INR 1.1 Creatinine Troponin I 0.11 H* Albumin 11/23/16 11/24/16 11/24/16 19:48 07:23 07:23 Hgb 8.5 L Hct 26.6 L INR Creatinine Troponin I 0.18 H* 0.19 H* Albumin 11/24/16 11/24/16 11/25/16 07:23 12:19 03:07 Hgb 7.8 L Hct 25.0 L INR Creatinine 1.61 H Troponin I 0.21 H* Albumin 11/25/16 11/25/16 11/25/16 03:07 03:07 10:43 Hgb Hct INR Creatinine 1.33 H Troponin I 0.49 H* 1.47 H* Albumin 2.4 L D ITS Impressions Chest X-Ray 11/23/16 13:57 IMPRESSION: Pulmonary edema with small bilateral pleural effusions. Endotracheal and nasogastric tubes are in satisfactory position. D/ / Abelino Lawrence MD / Abelino Lawrence MD Interpreting Provider: Abelino Lawrence MD Intake & Output 11/22/16 11/23/16 11/24/16 11/25/16 23:59 23:59 23:59 23:59 Intake Total 133 / 133 608 / 608 612 / 612 Output Total 700 / 700 1350 / 1350 470 / 470 Balance -567 / -567 -742 / -742 142 / 142 Weight 76 kg 73.7 kg Active Medications Artificial Tears (Lacri-Lube) 1 appl BOTH EYES Q4HR DARYL PRN Reason: Protocol Stop: 05/27/17 12:01 Last Admin: 11/25/16 12:36 Dose: Not Given Artificial Tears (Lacri-Lube) 1 appl BOTH EYES Q2HR PRN; Protocol PRN Reason: Dry Eyes Stop: 05/27/17 10:19 Aspirin (Aspirin) 81 mg PO DAILY DARYL Stop: 05/25/17 14:46 Last Admin: 11/25/16 08:45 Dose: 81 mg Atorvastatin Calcium (Lipitor) 80 mg PO HS DARYL Stop: 05/25/17 21:01 Last Admin: 11/24/16 20:22 Dose: 80 mg Chlorhexidine Gluconate (Chlorhexidine Rinse) 15 ml MM BID DARYL Stop: 05/27/17 21:01 Clopidogrel Bisulfate (Plavix) 75 mg PO DAILY DARYL Stop: 05/26/17 09:01 Last Admin: 11/25/16 08:45 Dose: 75 mg Dextrose/Water (Dextrose 50% (Syg)) 25 ml IVP AD PRN PRN Reason: Hypoglycemia Stop: 05/26/17 10:41 Glucagon (Glucagen) 1 mg IM ONCE PRN PRN Reason: Hypoglycemia Stop: 05/26/17 10:41 Glucose (Gluctose) 15 gm PO ONCE PRN PRN Reason: Hypoglycemia Stop: 05/26/17 10:41 Glucose (Gluctose) 30 gm PO ONCE PRN PRN Reason: Hypoglycemia Stop: 05/26/17 10:41 Heparin Sodium (Porcine) (Heparin) 5,300 unit 70 unit/kg (5300 unit) IVP Q6HR PRN PRN Reason: SEE COMMENTS Stop: 05/25/17 15:42 Heparin Sodium (Porcine) (Heparin) 2,700 unit 35 unit/kg (2700 unit) IVP Q6H PRN PRN Reason: SEE COMMENTS Stop: 05/25/17 15:42 Heparin Sodium/Dextrose (Heparin 25,000 Unit/500 Ml D5w) 25,000 unit in 500 mls @ 21.28 mls/hr IVC .[id number] DARYL; 14 UNIT/KG/HR PRN Reason: Protocol Stop: 05/25/17 15:46 Last Titration: 11/25/16 04:00 Dose: 10.91 unit/kg/hr, 16.598 mls/hr Fentanyl Citrate 1,000 mcg/ (Sodium Chloride) 100 mls @ 5 mls/hr IVC CONT DARYL; 50 MCG/HR PRN Reason: Protocol Stop: 05/25/17 15:46 Last Admin: 11/25/16 05:43 Dose: 50 mcg/hr, 5 mls/hr Dexmedetomidine HCl (Precedex) 400 mcg in 100 mls @ 7.6 mls/hr IVC .[id number] DARYL ; 0.4 MCG/KG/HR PRN Reason: Protocol Stop: 05/26/17 08:01 Last Admin: 11/24/16 19:56 Dose: Not Given Dextrose (Dextrose 5%) 1,000 mls @ 100 mls/hr IVC .Q10H PRN PRN Reason: HYPOGLYCEMIA Stop: 05/26/17 10:41 Magnesium Sulfate 2 gm/ (Dextrose) 104 mls @ 50 mls/hr IVPB Q6H PRN PRN Reason: Hypomagnesemia Stop: 05/27/17 10:29 Last Admin: 11/25/16 11:10 Dose: 50 mls/hr Potassium Chloride (Potassium Chloride 10 Meq/100ml) 10 meq in 100 mls @ 100 mls/hr IVPB Q1H PRN PRN Reason: Potassium less than 4 Stop: 05/27/17 10:29 Last Admin: 11/25/16 12:21 Dose: 100 mls/hr Potassium Phosphate 44 meq/ (Sodium Chloride) 260 mls @ 40 mls/hr IVPB Q10H PRN PRN Reason: Phosphate less than 3 Stop: 05/27/17 10:29 Insulin Human Lispro (Humalog) 0 units SQ Q6HR DARYL PRN Reason: Protocol Stop: 05/26/17 12:01 Last Admin: 11/25/16 12:35 Dose: 2 units Metoprolol Tartrate (Lopressor) 50 mg PO BID [facility] Stop: 05/27/17 09:01 Last Admin: 11/25/16 08:45 Dose: 50 mg Naloxone HCl (Narcan) 0.4 mg IVP Q2MIN PRN PRN Reason: Opioid Reversal Stop: 05/25/17 13:53 Nitroglycerin (Nitroglycerin) 0.4 mg SL Q5MIN PRN PRN Reason: Chest Pain Stop: 05/26/17 03:45 Last Admin: 11/24/16 03:58 Dose: 0.4 mg Ondansetron HCl (Zofran) 4 mg IVP Q6HR PRN; Protocol PRN Reason: Nausea And Vomiting Stop: 05/26/17 07:22 Pantoprazole Sodium (Protonix) 40 mg IVPB DAILY [facility] Stop: 05/26/17 09:01 Last Admin: 11/25/16 08:45 Dose: 40 mg - Imaging and Cardiology Chest Xray: report reviewed Echo: report reviewed Cardiac cath: report reviewed - EKG Interpretation EKG results cardiology: personally reviewed (afib. aflutter, and SR ECGs noted.) , other (currently afib RVR 120's - 140's on tele) Consult Discharge Plan - Plan Referrals: Bradley Bass DO [Primary Care Provider] -
[2016-11-25] MEDS ORDERED: Lacri-Lube 3.5 GM TUBE BOTH EYES SCH (12:00)
--- NOTE | 2016-11-25 13:39 | Electrocardiograph Report ---
[place] [id number] Test Date: 2016-11-24 Pat Name: Yumi Schofield Department: 109 Room: [facility] Gender: F [place] [employer]: HOLA : 1935 Requested By: Markie Crawford Order Number: [id number] Reading MD: Robert Coon MD Measurements Intervals [place] Rate: 73 P: 69 RI: 201 QRS: -10 QRSD: 138 T: 124 QT: 421 QTc: 447 Interpretive Statements SINUS RHYTHM INTRAVENTRICULAR CONDUCTION DELAY Poor R wave progression Electronically Signed On 11-25-2016 13:38:08 EDT by Robert Coon MD
[2016-11-25] MEDS ORDERED: Amiodarone Premix 150 MG/100 ML BAG IVPB ONE ×2 (14:11→14:24)
[2016-11-25] MEDS ORDERED: Amiodarone Premix 360 MG/200 ML BAG IVC ONE ×2 (14:11→14:15)
[2016-11-25] MEDS ORDERED: Amiodarone Premix 360 MG/200 ML BAG IVC SCH ×2 (14:15→20:00)
[2016-11-25] MEDS ORDERED: *HR* LORazepam 2 MG/ML VIAL IVP PRN (15:06)
[2016-11-25] MEDS ORDERED: *HR* Morphine 2 MG/ML SYRINGE IVP PRN (15:10)
[2016-11-25 16:28] VITALS: BP 111/93
--- NOTE | 2016-11-25 17:03 | Death Note ---
Discharge Sum: Summary - Date and Time Date of admission: 11/23/16 11:03 Date of : 11/25/16 Time of : 16:53 - Summary Details: Causes of : * Acute respiratory failure with hypoxia * Acute systolic heart failure * Myocardial infarction * Aortic stenosis Hospital course: 81-year-old white female with medical history significant for aortic stenosis, congestive heart failure, and coronary artery disease. Patient originally presented to an outside hospital on 11/23/2016 with acute hypoxic respiratory failure due to acute congestive heart failure. Patient was intubated in the outside hospital emergency department and transferred to [facility]. Patient was treated with aggressive care with diuresis to tolerance and mechanical ventilation. Her course was complicated by atrial fibrillation with rapid ventricular response and acute renal failure. She was not doing well on spontaneous breathing trials, and it appeared that she was going to have a prolonged course of mechanical ventilation and be at risk for tracheostomy tube placement. After further discussions with the patient's family, they decided on withdrawal of care and transition to DNR CC status. After removal of the mechanical ventilator, the patient shortly thereafter. Time of : 11/25/2016 at 16:53. - Additional Data Attending physician: Markie Crawford DO Discharge Sum: Diag - PCOD Probable Cause of : Congestive heart failure Discharge Sum: Prov - Provider Primary care physician: Bradley Bass Consults: 11/25/16 10:26 Consult to Cardiology [CONS] Routine Comment: Consulting Provider: Cardiology Kamiah Reason for Consult: NSTEMI, Decreased EF, Severe Call Completed: No
[2016-11-25] MEDS ORDERED: Chlorhexidine Rinse 15 ML MOUTHWASH MM SCH (21:00)
--- NOTE | 2016-11-26 19:27 | Arterial Study Report ---
Renal Duplex Patient Name:Yumi Schofield Order Number:[id number] Procedure Date:11/25/2016 Date:6Age:81 yrs Gender:Female Location:[facility] Room #: IC06 Building Construction Contractor:Irina Staples RVT, RDCS Referring MD:Markie Crawford cryogenic transport driver:DO Taras España MD:Terence Barnett MD Primary Indications:JUST[place] Secondary Indications: Hypertension Risk Factors Yes/No Hypertension Yes Diabetes Yes Hypercholesterolemia Yes Impressions: Findings: bilateral renal artery is hemodynamically well maintained. Findings Renal Anatomy: The right kidney size measures 11.1 x 5.2 x 6.2 cm. The left kidney size measures 10.7 x 4.6 x 4.4 cm. Prior Study: No prior study available for comparison. Renal Duplex Right RAR:.6 Left RAR:.6 Side Vessel PSV EDV RI PI Accel Aorta 93.00 27.00 0.71 Left Proximal Renal Artery 54.00 15.00 0.72 Left Mid Renal Artery 60.00 16.00 0.73 Left Distal Renal Artery 45.00 10.00 0.78 Right Proximal Renal Artery 52.00 19.00 0.63 Right Mid Renal Artery 49.00 15.00 0.69 Right Distal Renal Artery 57.00 13.00 0.77 Updated by Terence Barnett MD on 11/26/2016 7:23:05 PM electronically signed on 11/26/2016 7:23:19 PM with status of Final
== END 2016-11-25 16:53 | disposition expired | DRG 208 ==
LOC: ICNU 11:03
PROVIDERS: ADMIT Internal Medicine Pulmonary Disease; ATTEND Internal Medicine Pulmonary Disease